=== PATIENT | female | born 1960 | race Caucasian/White ===

== ENCOUNTER 2017-06-09 01:25 | Emergency (ER) | payer BC, OTHER ==
--- NOTE | 2017-06-09 04:58 | ED ---
[place] Rebecca, scribed for Travis Zhao MD on 06/09/17 at 0319 . Upper Extremity Pain - HPI Summary HPI Summary: Pt is a 57 y/o F who presents to ED c/o LUE pain, predominantly in the elbow. 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 Associated pain is currently moderate, ranked 6/10 and described as shooting. Sx aggravated and alleviated by nothing. No prior similar episodes. R hand dominant. - History of Current Complaint Chief Complaint: EDExtremityUpper Stated Complaint: ELBOW INJURY FROM WORK Hx Obtained From: Patient Onset/Duration: Still Present Severity Currently: Moderate - 6/10 Pain Location: Elbow - Left Character: Sharp Aggravating Factor(s): Nothing Alleviating Factor(s): Nothing Associated Signs & Symptoms: Positive: Negative Related History: Occupational Injury, Dominant Hand Right - Allergies/Home Medications Allergies/Adverse Reactions: Allergies Allergy/AdvReac Type Severity Reaction Status Date / Time Bacitracin [From Neosporin] Allergy Intermediate Hives Verified 06/09/17 01:32 Neomycin [From Neosporin] Allergy Intermediate Hives Verified 06/09/17 01:32 Polymyxin B [From Neosporin] Allergy Intermediate Hives Verified 06/09/17 01:32 PMH/Surg Hx/FS Hx/Imm Hx Cardiovascular History: Reports: Hx Hypertension - W/MEDS Sensory History: Reports: Hx Contacts or Glasses Opthamlomology History: Reports: Hx Contacts or Glasses Infectious Disease History: No Infectious Disease History: Denies: Traveled Outside the [place] in Last 30 Days - Family History Known Family History: Positive: Cardiac Disease - Social History Alcohol Use: Daily Alcohol Amount: 1-2 drinks Substance Use Type: Reports: None Substance Use Comment - Amount & Last Used: 1-2 beers Hx Tobacco Use: Yes Smoking Status (MU): Heavy Every Day Tobacco Smoker Review of Systems Negative: Fever Positive: Arthralgia - LUE pain, predominantly in the elbow All Other Systems Reviewed And Are Negative: Yes Physical Exam - Summary Physical Exam Summary: Appearance: Well-appearing, Well-nourished Skin: Warm Eyes: Normal ENT: Normal Neck: Supple, nontender Respiratory: Clear to auscultation Cardiovascular: Normal Abdomen: Soft, nontender Bowel: Present Musculoskeletal: Strength/ROM Intact, mild tenderness to the left elbow diffusely with no erythema and no edema, tenderness in the L forearm and L hand in a non-dermotomal distribution, normal strength and sensation, normal pulses Neurological: Normal, A&Ox3 Psychiatric: Normal Triage Information Reviewed: Yes Vital Signs On Initial Exam: Initial Vitals Temp Pulse Resp BP Pulse Ox 97.6 F 99 14 144/89 96 06/09/17 01:29 06/09/17 01:29 06/09/17 01:29 06/09/17 01:29 06/09/17 01:29 Vital Signs Reviewed: Yes - Carpenter Coma Scale Coma Scale Total: 15 Diagnostics - Vital Signs Vital Signs Temp Pulse Resp BP Pulse Ox 06/09/17 01:29 97.6 F 99 14 144/89 96 - Laboratory Lab Statement: Any lab studies that have been ordered have been reviewed, and results considered in the medical decision making process. - Radiology Forearm XR Xray Interpretation: No Acute Changes - No acute fractures or disclocation. Radiology Interpretation Completed By: ED Physician Elbow XR Xray Interpretation: No Acute Changes - No acute fractures or disclocation. Radiology Interpretation Completed By: ED Physician Course/Dx - Course Assessment/Plan: no acute frac or dislocations on xr, instructed to fu with ortho, agrees to and understnsds dc instructoins - Diagnoses Provider Diagnoses: Elbow sprain Discharge - Discharge Plan Condition: Good Disposition: HOME Patient Education Materials: Elbow Sprain (ED) Referrals: Roamn Malcolm PA [Primary Care Provider] - Vinicius Colorado MD [Medical Doctor] - Additional Instructions: PLEASE MAKE AN APPOINTMENT FIRST THING IN THE MORNING TO BE SEEN BY AN ORTHOPEDIST WITHIN 1 WEEK PLEASE RETURN TO THE EMERGENCY ROOM IF YOU HAVE ANY WORSENING OR CONCERNING SYMPTOMS The documentation as recorded by the Mary correa Rebecca accurately reflects the service I personally performed and the decisions made by me, Travis Zhao MD.
[2017-06-09 05:13] VITALS: BP 132/69
--- NOTE | 2017-06-09 08:04 | RAD ---
Indication: Left elbow pain. 4 views of left elbow demonstrates no fracture. No evidence of joint effusion is noted. No other bone or joint abnormality is identified. IMPRESSION: Unremarkable left elbow.
--- NOTE | 2017-06-09 08:06 | RAD ---
Indication: Left forearm pain. 2 views left forearm demonstrates no fracture. No other bone or joint. IMPRESSION: No fracture of the left forearm is noted.
== END 2017-06-09 05:07 | disposition home or self-care (01) ==
LOC: ED 01:25
DX: S53.402A Unspecified sprain of left elbow, initial encounter (principal); Z72.0 Tobacco use; X58.XXXA Exposure to other specified factors, initial encounter; Y92.9 Unspecified place or not applicable; I10 Essential (primary) hypertension
CPT/HCPCS: 99282

== ENCOUNTER 2018-10-17 01:29 | Emergency (ER) | payer BC, OTHER ==
[2018-10-17] MEDS ORDERED: Ibuprofen TAB* 800 MG PO ONE (01:50)
[2018-10-17] MEDS ORDERED: oxyCODONE/Acetamin 5/325 MG* TAB PO ONE (01:50)
--- NOTE | 2018-10-17 01:56 | ED ---
Upper Extremity Pain - HPI Summary HPI Summary: Pt is a 58 y/o F presenting to the ED with a chief complaint of R hand pain. 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 The pain is presently rated at a 7/10 and it radiates from her thumb knuckle into her hand. - History of Current Complaint Chief Complaint: EDExtremityUpper Stated Complaint: RIGHT THUMB POPPED, SWOLLEN,HURTS TO BEND,PER PT Time Seen by Provider: 10/17/18 01:45 Hx Obtained From: Patient Mechanism Of Injury: Other - see HPI Onset/Duration: Started Hours Ago, Still Present Timing: Constant, Lasting Hours Severity Initially: Moderate Severity Currently: Moderate Pain Location: Hand - right Character: Aching Aggravating Factor(s): Movement Alleviating Factor(s): Nothing Associated Signs & Symptoms: Positive: Negative Related History: Occupational Injury - Allergies/Home Medications Allergies/Adverse Reactions: Allergies Allergy/AdvReac Type Severity Reaction Status Date / Time bacitracin Allergy Hives Verified 10/17/18 01:35 [From Neosporin ([id number])] neomycin Allergy Hives Verified 10/17/18 01:35 [From Neosporin ([id number])] polymyxin B Allergy Hives Verified 10/17/18 01:35 [From Neosporin ([id number])] PMH/Surg Hx/FS Hx/Imm Hx Previously Healthy: No Endocrine/Hematology History: Denies: Hx Diabetes Cardiovascular History: Reports: Hx Hypercholesterolemia, Hx Hypertension - W/ MEDS Sensory History: Reports: Hx Contacts or Glasses Opthamlomology History: Reports: Hx Contacts or Glasses Infectious Disease History: No Infectious Disease History: Denies: Traveled Outside the [place] in Last 30 Days - Family History Known Family History: Positive: Cardiac Disease - Social History Alcohol Use: Daily Alcohol Amount: 1-2 drinks Hx Substance Use: No Substance Use Type: Reports: None Substance Use Comment - Amount & Last Used: 1-2 beers Hx Tobacco Use: Yes Smoking Status (MU): Heavy Every Day Tobacco Smoker Review of Systems Negative: Fever Positive: Arthralgia All Other Systems Reviewed And Are Negative: Yes Physical Exam - Summary Physical Exam Summary: VITAL SIGNS: Reviewed. GENERAL: Patient is a well-developed and nourished female who is lying comfortable in the stretcher. Patient is not in any acute respiratory distress. HEAD AND FACE: No signs of trauma. No ecchymosis, hematomas or skull depressions. No sinus tenderness. EYES: PERRLA, EOMI x 2, No injected conjunctiva, no nystagmus. EARS: Hearing grossly intact. Ear canals and tympanic membranes are within normal limits. MOUTH: Oropharynx within normal limits. NECK: Supple, trachea is midline, no adenopathy, no JVD, no carotid bruit, no c- spine tenderness, neck with full ROM. CHEST: Symmetric, no tenderness at palpation LUNGS: Clear to auscultation bilaterally. No wheezing or crackles. CVS: Regular rate and rhythm, S1 and S2 present, no murmurs or gallops appreciated. ABDOMEN: Soft, non-tender. No signs of distention. No rebound no guarding, and no masses palpated. Bowel sounds are normal. EXTREMITIES: FROM in all major joints, no edema, no cyanosis or clubbing. Tenderness over R first metacarpal. No edema. Neurovascular exam intact. NEURO: Alert and oriented x 3. No acute neurological deficits. Speech is normal and follows commands. SKIN: Dry and warm Triage Information Reviewed: Yes Vital Signs On Initial Exam: Initial Vitals Temp Pulse Resp BP Pulse Ox 97.5 F 102 14 135/81 94 10/17/18 01:32 10/17/18 01:32 10/17/18 01:32 10/17/18 01:32 10/17/18 01:32 Vital Signs Reviewed: Yes Diagnostics - Vital Signs Vital Signs Temp Pulse Resp BP Pulse Ox 10/17/18 01:32 97.5 F 102 14 135/81 94 - Laboratory Lab Statement: Any lab studies that have been ordered have been reviewed, and results considered in the medical decision making process. - Radiology Hand X-ray Radiology Interpretation Completed By: ED Physician Summary of Radiographic Findings: No acute fracture. Pending official radiology report. Course/Dx - Course Course Of Treatment: Pt is a 58 y/o F presenting to the ED with a chief complaint of R hand pain. 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 The pain is presently rated at a 7 and it radiates from her thumb knuckle into her hand. Hand X-ray shows no acute fracture. The pt will be sent home with a dx of hand sprain and instructions to follow up with orthopedics. - Diagnoses Provider Diagnoses: Hand sprain Discharge - Sign-Out/Discharge Documenting (check all that apply): Patient Departure Patient Received Moderate/Deep Sedation with Procedure: No - Discharge Plan Condition: Stable Disposition: HOME Prescriptions: Ibuprofen TAB* [Motrin TAB* 800 MG] 800 mg PO Q6H PRN #30 tab PRN Reason: Pain Forms: *Work Release Referrals: Roman Malcolm PA [Primary Care Provider] - Vinicius Colorado MD [Medical Doctor] - Additional Instructions: Please follow up with your primary care provider within the next 3 days. Return to the emergency department with any new or worsening symptoms. - Attestation Statements Document Initiated by Durgaibe: Yes Documenting Scribe: Liza Rodriguez Provider For Whom Tameka is Documenting (Include Credential): Andrew Colmenares MD. Scribe Attestation: Liza Land, durgaibed for Andrew Colmenares MD. on 10/17/18 at 0408. Status of Scribe Document: Ready
[2018-10-17 02:51] VITALS: BP 124/79
== END 2018-10-17 02:51 | disposition home or self-care (01) ==
LOC: ED 01:29
DX: S63.91XA Sprain of unspecified part of right wrist and hand, initial encounter (principal); X58.XXXA Exposure to other specified factors, initial encounter; Y92.9 Unspecified place or not applicable; Y99.0 Civilian activity done for income or pay; I10 Essential (primary) hypertension; Z88.3 Allergy status to other anti-infective agents; F17.200 Nicotine dependence, unspecified, uncomplicated
CPT/HCPCS: 99282; A9270-GY

== ENCOUNTER 2018-12-04 09:18 | Day surgery (SDC) | payer OTHER ==
--- NOTE | 2018-11-28 10:16 | HP ---
Amended report to enter cosigning physician. PREOPERATIVE HISTORY AND PHYSICAL: DATE OF ADMISSION/SURGERY: 12/04/18 DATE OF OFFICE VISIT/ENCOUNTER: 11/22/18 ATTENDING SURGEON: Leanne Ervin MD* (dictated by CHINA Mathias). PROCEDURE: Right thumb trigger release. HISTORY OF PRESENT ILLNESS: This is a 58-year-old female who sustained a work- related injury to her right hand on 10/16/18. She developed a traumatic trigger thumb. She did receive a cortisone injection. Initially that was helpful; however, the symptoms have returned, and she has now consented to proceed with surgical intervention. PAST MEDICAL HISTORY: 1. Hypertension. 2. Hypercholesterolemia. 3. Borderline diabetes. 4. History of peritonitis. PAST SURGICAL HISTORY: 1. Appendectomy. 2. Right carpal tunnel release. 3. Right knee arthroscopy. CURRENT MEDICATIONS: 1. Fish oil 1000 mg daily. 2. Lisinopril 2.5 mg daily. 3. Potassium chloride ER. 4. Pravastatin sodium daily. ALLERGIES: No known drug allergies. FAMILY MEDICAL HISTORY: Diabetes, heart disease, hypertension, cancer. 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 She is a current smoker, less than a pack per day. She started at age 15. She denies recreational drug use. She drinks alcohol on occasion. REVIEW OF SYSTEMS: Negative for general, cephalic, cardiovascular, respiratory , GI, , other musculoskeletal, integumentary, endocrine, neurologic, and hematologic symptoms. Infectious Disease: Negative for MRSA, hepatitis C, HIV. PHYSICAL EXAMINATION GENERAL: Well-developed, well-nourished 58-year-old female, in no acute distress. VITAL SIGNS: Height 5 feet 5 inches, weight 199 pounds, pulse rate 82, blood pressure 122/84. HEENT: Normocephalic, atraumatic. Pupils are equal, round, and reactive to light and accommodation. Extraocular movements are intact. Throat is clear. NECK: Supple. No palpable lymph nodes. PULMONARY: Lungs are clear to auscultation bilaterally. No wheezes, rales, or rhonchi. CARDIOVASCULAR: Regular rate and rhythm. S1, S2. No murmurs, rubs, or gallops. No edema. ABDOMEN: Positive bowel sounds. Soft, nontender. NEUROLOGICAL: Alert and oriented x3. Cranial nerves II through XII are intact. Sensation is intact to light touch. MUSCULOSKELETAL: On exam of her right hand, she has tenderness to palpation at the A1 mejia of the thumb and active triggering when she flexes the thumb. Skin is intact. Neurovascular function is intact. IMPRESSION: Traumatic trigger thumb on the right. PLAN: The patient is scheduled to undergo right thumb trigger release with Dr. Ervin on 12/04/18. She will return to the office 10 days postop for followup and suture removal. A prescription for Ultracet was e-scribed to the patient's pharmacy for postoperative pain management. CHINA MATHIAS [id number]/KELLIE #: [id number] MTDThomas
[~2018-12-04 09:18] MED LIST: Buffered Lidocaine 1% SYRIN* 1 ML/SYRINGE INTRADERM ONE; Famotidine IV* 10 MG/ML 2 ML (20 mg) IV ONE; Lactated Ringers 1000 ML Bag* 1,000 ML IV SCH
[2018-12-04] MEDS ORDERED: Famotidine IV* 10 MG/ML 2 ML (20 mg) ONE (09:33)
[2018-12-04] MEDS ORDERED: Buffered Lidocaine 1% SYRIN* 1 ML/SYRINGE INTRADERM ONE (09:59)
[2018-12-04] MEDS ORDERED: Midazolam* 1 MG/ML 5 ML VIAL (5 MG) ONE (10:05)
[2018-12-04] MEDS ORDERED: Ketorolac INJ* 30 MG/ML 1 ML VIAL ONE (10:19)
[2018-12-04] MEDS ORDERED: Ondansetron INJ* 2 MG/ML VIAL ONE (10:19)
[2018-12-04] MEDS ORDERED: Lidocaine 2% PF * 5 ML VIAL ONE (10:19)
[2018-12-04] MEDS ORDERED: Propofol* 10 MG/ML 20 ML BTL ONE (10:19)
[2018-12-04] MEDS ORDERED: Acetaminophen TAB* 325 MG PO PRN (10:36)
[2018-12-04 14:03] VITALS: BP 103/66
[2018-12-04] MEDS ORDERED: Lidocaine 1% INJ* 10 MG/ML 30 ML SDV ONE (14:32)
--- NOTE | 2018-12-04 21:17 | OP ---
DATE OF OPERATION: 12/04/18 [facility] DATE OF : 64 SURGEON: Dr. Ervin. SUPERVISOR SIGN SHOP: CHINA Mathias. ANESTHESIA: Local MAC. PRE-OP DIAGNOSIS: Right trigger thumb. POST-OP DIAGNOSIS: Right trigger thumb. OPERATIVE PROCEDURE: Right trigger thumb release. ESTIMATED BLOOD LOSS: Zero. TOURNIQUET TIME: About 10 minutes. INDICATIONS FOR PROCEDURE: Daija is a 58-year-old female who has triggering and locking of her right thumb after a work-related injury. She presents for right thumb trigger release. DESCRIPTION OF PROCEDURE: The patient was brought to the operating room and was given a sedation anesthetic and a local infiltration of 10 cc of 1% plain lidocaine overlying the MP flexion crease of her right thumb. The skin of her right hand and forearm was prepped and draped in the usual sterile fashion. The hand and forearm were exsanguinated and the tourniquet elevated to 250 mmHg. A transverse incision was made, centered over the A1 mejia of the right thumb, and we dissected through the subcutaneous tissue down to the mejia. The digital neurovascular bundles were retracted by the certified surgical assistant, Sol Alvarado. The A1 mejia was incised longitudinally, completely releasing the FPL tendon, which was in good condition. The wound was irrigated and the skin edges were reapproximated with 4-0 nylon suture. The wound was dressed with Xeroform, 4 x 4, Webril, and an Dave wrap. The patient tolerated the procedure well and was brought to the recovery room in good condition. [id number]/[facility] #: [id number] [facility]OSPITALThomas
== END 2018-12-04 11:57 | disposition home or self-care (01) ==
LOC: OREAST 09:18
PROVIDERS: ATTEND Orthopaedic Surgery
DX: M65.311 Trigger thumb, right thumb (principal); I10 Essential (primary) hypertension; E78.00 Pure hypercholesterolemia, unspecified; F17.210 Nicotine dependence, cigarettes, uncomplicated
CPT/HCPCS: J1885; J2250; J2405; J2704